=== PATIENT | female | born 2000 | race Caucasian/White ===

== ENCOUNTER 2022-10-30 10:52 | Emergency (ER) | payer OTHER ==
[2022-10-30 11:10] VITALS: TEMP 98.1
[2022-10-30] MEDS ORDERED: DUONEB 0.5-3 MG/3 ml Neb IH ONE ×2 (11:21→11:29)
--- NOTE | 2022-10-30 11:21 | ERPHSYRPT ---
- History of Present Illness Time Seen by Provider: 10/30/22 11:16 Source: patient Exam Limitations: no limitations Patient Subjective Stated Complaint: C/O SOB for the past 3 days that is worse today and becomes very bad when active a work. Triage Nursing Assessment: Patient ambulated back to ER without difficulties. She is alert and oriented but tearful. No SOB. No cough. Skin tone normal. Lungs clear. Physician History: Patient is a 22-year-old female presents to our ED with shortness of breath that has been ongoing for 3 days. 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 Patient states her shortness of breath worsens with activity. No shortness of breath at rest. Patient asymptomatic at this time. No chest pain. No nausea vomiting or diaphoresis. Patient is a former smoker. Patient that she is quit within the past week. No fever no cough no wheezing. Patient voices no other complaints or concerns at this time. Portions of this note were created with voice recognition technology. There may be grammatical, spelling, punctuation or sound alike errors Timing/Duration: today Activities at Onset: none Severity of Dyspnea-Max: moderate Severity of Dyspnea-Current: mild Possible Cause: no prior episodes Modifying Factors: Improves With: activity Associated Symptoms: denies symptoms Allergies/Adverse Reactions: No Known Drug Allergies Allergy (Verified 10/30/22 10:54) Hx Tetanus, Diphtheria Vaccination/Date Given: Yes Hx Influenza Vaccination/Date Given: No Hx Pneumococcal Vaccination/Date Given: No Immunizations Up to Date: Yes Travel Risk - International Travel Have you traveled outside of the country in past 3 weeks: No - Coronavirus Screening Are you exhibiting any of the following symptoms?: Yes Symptoms: Shortness of Breath Close contact with a COVID-19 positive Pt in past 14-21 Days: No - Vaccine Status Have you recieved a Covid-19 vaccination: Yes Medical Technologist Prn: Unknown - Vaccination Dates Dates if Unknown: ? - Review of Systems Constitutional: No Symptoms, No Fever, No Chills Eyes: No Symptoms Ears, Nose, & Throat: No Symptoms Respiratory: No Symptoms, No Cough, No Dyspnea Cardiac: No Symptoms, No Chest Pain, No Edema, No Syncope Abdominal/Gastrointestinal: No Symptoms, No Abdominal Pain, No Nausea, No Vomiting, No Diarrhea Genitourinary Symptoms: No Symptoms, No Dysuria Musculoskeletal: No Symptoms, No Back Pain, No Neck Pain Skin: No Symptoms, No Rash Neurological: No Symptoms, No Dizziness, No Focal Weakness, No Sensory Changes Psychological: No Symptoms Endocrine: No Symptoms Hematologic/Lymphatic: No Symptoms Immunological/Allergic: No Symptoms All Other Systems: Reviewed and Negative - Past Medical History Pertinent Past Medical History: Yes Psycho-Social History: Anxiety 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 - Past Surgical History Past Surgical History: No - Social History Smoking Status: Former smoker Exposure to second hand smoke: No Drug Use: none - Female History Hx Last Menstrual Period: 1 MONTH AGO Hx Now: No - Nursing Vital Signs Nursing Vital Signs: Initial Vital Signs Temperature 98.1 F 10/30/22 10:55 Pulse Rate 89 10/30/22 10:55 Respiratory Rate 19 10/30/22 10:55 Blood Pressure 153/97 10/30/22 10:55 O2 Sat by Pulse Oximetry 100 10/30/22 10:55 Pain Scale Pain Intensity 0 - Physical Exam General Appearance: no apparent distress, alert Eye Exam: PERRL/EOMI Ears, Nose, Throat Exam: hearing grossly normal, normal ENT inspection, sinus pain/drainage Neck Exam: normal inspection, supple Respiratory Exam: normal breath sounds, lungs clear, airway intact, No respiratory distress Cardiovascular/Chest Exam: normal heart sounds, regular rate/rhythm Abdominal/Gastrointestinal Exam: soft, normal bowel sounds, No tenderness, No distention, No mass Extremity Exam: non-tender, normal range of motion, normal inspection, no calf tenderness, no pedal edema Neurologic Exam: alert, oriented x 3, cooperative, brand engineer II-XII nml as tested, sensation nml, No motor deficits Skin Exam: normal color, warm, No dry Lymphatic Exam: No adenopathy SpO2 Interpretation: normal SpO2: 100 O2 Delivery: Room Air - Course Nursing assessment & vital signs reviewed: Yes EKG Interpreted by Me: RATE (72), Sinus Rhythm, NORMAL AXIS, NORMAL INTERVALS - Radiology Exams Chest X-ray Interpretation: Teleradiologist Report (Negative chest x-ray) Ordered Tests: Active Orders 24 hr Category Date Time Status Material Stress Tester STAT Care 10/30/22 11:14 Active EKG-ER Only STAT Care 10/30/22 11:14 Active IV Insertion STAT Care 10/30/22 11:14 Active Pulse Oximetry (ED) STAT Care 10/30/22 11:14 Active CHEST 1 VIEW (PORTABLE) Stat Exams 10/30/22 11:15 Completed CBC W DIFF Stat Lab 10/30/22 11:28 Completed CMP Stat Lab 10/30/22 11:28 Completed D-DIMER QUANTITATIVE Stat Lab 10/30/22 11:28 Completed HCG QUALITATIVE, URINE Stat Lab 10/30/22 Ordered NT PRO BNPII Stat Lab 10/30/22 11:28 Completed TROPONIN Q4H Lab 10/30/22 11:28 Completed TROPONIN Q4H Lab 10/30/22 15:15 Ordered TROPONIN Q4H Lab 10/30/22 19:15 Ordered Medication Summary Discontinued Medications Generic Name Dose Route Start Last Admin Trade Name Freq PRN Reason Stop Dose Admin Albuterol/Ipratropium 3 ml 10/30/22 11:21 10/30/22 11:32 Ipratropium/Albuterol Sulfate 3 Ml Ampul.Neb IH 10/30/22 11:22 3 ml STAT ONE Administration Albuterol/Ipratropium Confirm 10/30/22 11:29 Ipratropium/Albuterol Sulfate 3 Ml Ampul.Neb Administered 10/30/22 11:30 Dose 3 ml IH .STK-MED ONE Prednisone 60 mg 10/30/22 12:24 10/30/22 12:25 Prednisone 20 Mg Tablet PO 10/30/22 12:25 60 mg STAT ONE Administration Prednisone Confirm 10/30/22 12:24 Prednisone 20 Mg Tablet Administered 10/30/22 12:25 Dose 60 mg .ROUTE .STK-MED ONE Lab/Rad Data: Laboratory Result Diagrams 10/30/22 11:28 10/30/22 11:28 Laboratory Results 10/30/22 10/30/22 10/30/22 Range/Units 11:28 11:28 11:28 WBC (4.0-10.5) x10^3/uL RBC (4.1-5.4) x10^6/uL Hgb (12.0-16.0) g/dL Hct (35-47) % MCV (78-100) fL MCH (26-32) pg MCHC (32-36) g/dL RDW (11.5-14.0) % Plt Count (150-450) x10^3/uL MPV (7.5-11.0) fL Gran % (36.0-66.0) % Immature Gran % (Auto) (0.00-0.4) % Nucleat RBC Rel Count (0.00-0.1) % Eos # (Auto) (0-0.5) x10^3/uL Immature Gran # (Auto) (0.00-0.03) x10^3u/L Absolute Lymphs (auto) (1.0-4.6) x10^3/uL Absolute Monos (auto) (0.0-1.3) x10^3/uL Absolute Nucleated RBC (0.00-0.01) x10^3u/L Lymphocytes % (24.0-44.0) % Monocytes % (0.0-12.0) % Eosinophils % (0.00-5.0) % Basophils % (0.0-0.4) % Absolute Granulocytes (1.4-6.9) x10^3/uL Basophils # (0-0.4) x10^3/uL D-Dimer 0.43 (0.0-0.50) mg/L Sodium 139 (137-145) mmol/L Potassium 4.0 (3.5-5.1) mmol/L Chloride 106 (98-107) mmol/L Carbon Dioxide 24 (22-30) mmol/L Anion Gap 13.5 (5-15) MEQ/L BUN 11 (7-17) mg/dL Creatinine 0.60 (0.52-1.04) mg/dL Estimated GFR > 60.0 ML/MIN Glucose 101 (74-106) mg/dL Calcium 9.0 (8.4-10.2) mg/dL Total Bilirubin 0.40 (0.2-1.3) mg/dL AST 23 (14-36) U/L ALT 28 (0-35) U/L Alkaline Phosphatase 93 (38-126) U/L Troponin I < 0.012 (0.000-0.034) ng/mL NT-Pro-B Natriuret Pep 60.5 (<300) pg/mL Serum Total Protein 7.7 (6.3-8.2) g/dL Albumin 4.4 (3.5-5.0) g/dL 10/30/22 Range/Units 11:28 WBC 8.5 (4.0-10.5) x10^3/uL RBC 4.98 (4.1-5.4) x10^6/uL Hgb 12.9 (12.0-16.0) g/dL Hct 41.1 (35-47) % MCV 82.5 (78-100) fL MCH 25.9 L (26-32) pg MCHC 31.4 L (32-36) g/dL RDW 14.1 H (11.5-14.0) % Plt Count 295 (150-450) x10^3/uL MPV 10.4 (7.5-11.0) fL Gran % 52.4 (36.0-66.0) % Immature Gran % (Auto) 0.4 (0.00-0.4) % Nucleat RBC Rel Count 0.0 (0.00-0.1) % Eos # (Auto) 0.13 (0-0.5) x10^3/uL Immature Gran # (Auto) 0.03 (0.00-0.03) x10^3u/L Absolute Lymphs (auto) 3.24 (1.0-4.6) x10^3/uL Absolute Monos (auto) 0.62 (0.0-1.3) x10^3/uL Absolute Nucleated RBC 0.00 (0.00-0.01) x10^3u/L Lymphocytes % 37.9 (24.0-44.0) % Monocytes % 7.3 (0.0-12.0) % Eosinophils % 1.5 (0.00-5.0) % Basophils % 0.5 (0.0-0.4) % Absolute Granulocytes 4.48 (1.4-6.9) x10^3/uL Basophils # 0.04 (0-0.4) x10^3/uL D-Dimer (0.0-0.50) mg/L Sodium (137-145) mmol/L Potassium (3.5-5.1) mmol/L Chloride (98-107) mmol/L Carbon Dioxide (22-30) mmol/L Anion Gap (5-15) MEQ/L BUN (7-17) mg/dL Creatinine (0.52-1.04) mg/dL Estimated GFR ML/MIN Glucose (74-106) mg/dL Calcium (8.4-10.2) mg/dL Total Bilirubin (0.2-1.3) mg/dL AST (14-36) U/L ALT (0-35) U/L Alkaline Phosphatase (38-126) U/L Troponin I (0.000-0.034) ng/mL NT-Pro-B Natriuret Pep (<300) pg/mL Serum Total Protein (6.3-8.2) g/dL Albumin (3.5-5.0) g/dL - Progress Progress: improved Air Movement: good Progress Note: Patient 22-year-old female presents to our ED for evaluation of shortness of breath with exertion. Patient was asymptomatic at rest. We ambulated patient throughout our ED. Patient maintained oxygen saturation of 98% while walking. She had no signs of labored breathing. No chest pain. EKG normal sinus rhythm rate of 72. Chest x-ray negative no acute findings. CBC CMP negative. COVID test negative. D-dimer negative. Troponin negative. BNP within normal limits. Patient received a dose of albuterol and prednisone. Symptoms improved. Patient will be discharged home with a prescription for albuterol rescue inhaler and 3 days of prednisone. Patient agrees to follow-up with her primary care doctor within 48 hours for reevaluation. She voices no other complaints or concerns at this time. Portions of this note were created with voice recognition technology. There may be grammatical, spelling, punctuation or sound alike errors Complexity problem addressed is moderate. No critical care time Complexity data reviewed and analyzed is moderate. Test ordered. Test reviewed and analyzed by Dr. Cheema. Clinical correlation made between findings. We ambulated patient in our ED to assess functional oxygenation. O2 sat 98% with ambulation. This is normal. No respiratory distress. Risk complication and or risk morbidity/mortality patient management is high. Patient received nebulized/albuterol, DuoNeb for treatment of shortness of breath. A prescription for rescue inhaler and prednisone forwarded to patient's pharmacy. Vital stable. Time spent in discharge patient is approximately 15 minutes. Plan of care established for shared decision making. No social determinants of health present simply follow-up. Patient states she ready for discharge. Portions of this note were created with voice recognition technology. There may be grammatical, spelling, punctuation or sound alike errors 10/30/22 12:40 Blood Culture(s) Obtained: No Antibiotics given: No Counseled pt/family regarding: lab results, diagnosis, need for follow-up, rad results - Departure Departure Disposition: Home Clinical Impression: Shortness of breath Condition: Stable Critical Care Time: No Referrals: DOCTOR,NO FAMILY [Primary Care Provider] - Follow up/PCP as directed ENRRIQUE HUERTA MD [ACTIVE STAFF] - Follow up/PCP as directed Instructions: Shortness of Breath, Adult ED Additional Instructions: Discharge/Care Plan DUSTIN PEDROZA was seen on 10/30/22 in the Emergency Room. The patient was counseled regarding Diagnosis,Lab results, Imaging studies, need for follow up and when to return to the Emergency Room. Prescriptions given: Discharge Note I have spoken with the patient and/or caregivers. I have explained the patient's condition, diagnosis and treatment plan based on the information available to me at this time. I have answered the patient's and/or caregiver's questions and addressed any concerns. The patient and/or caregivers have as good understanding of the patient's diagnosis, condition and treatment plan as can be expected at this point. The vital signs have been stable. The patient's condition is stable and appropriate for discharge from the emergency department. The patient will pursue further outpatient evaluation with the primary care physician or other designated or consulting physician as outlined in the discharge instructions. The patient and/or caregivers are agreeable to this plan of care and follow-up instructions have been explained in detail. The patient and/or caregivers have received these instruction. The patient/and or caregivers are aware that any significant change in condition or worsening of symptoms should prompt an immediate return to this or the closest emergency department or call 911. Prescriptions: Prednisone 10 mg [Deltasone 10 mg] 40 mg PO DAILY 3 Days #12 tablet Albuterol 8 gm Mdi Hfa [Ventolin Hfa MDI] 8 gm IH Q4H #1
[2022-10-30 11:33] LABS: Absolute Neutrophil Ct (ANC) 4.48 x10^3/uL (1.4-6.9); BASOPHIL % 0.5 % (0.0-0.4); Basophil (Absolute #) 0.04 x10^3/uL (0-0.4); Eosinophil % 1.5 % (0.00-5.0); Eosinophil (Absolute #) 0.13 x10^3/uL (0-0.5); Hematocrit 41.1 % (35-47); Hemoglobin 12.9 g/dL (12.0-16.0); IMMATURE GRAN # 0.03 x10^3u/L (0.00-0.03); IMMATURE GRAN % 0.4 % (0.00-0.4); Lymphocyte (Absolute #) 3.24 x10^3/uL (1.0-4.6); Lymphocytes % 37.9 % (24.0-44.0); Mean Cell Volume 82.5 fL (78-100); Mean Corpuscular Hemoglobin 25.9 pg (26-32); Mean Corpuscular Hgb Concent. 31.4 g/dL (32-36); Mean Platelet Volume 10.4 fL (7.5-11.0); Monocyte (Absolute #) 0.62 x10^3/uL (0.0-1.3); Monocytes % 7.3 % (0.0-12.0); Neutrophil % 52.4 % (36.0-66.0); Platelet Count 295 x10^3/uL (150-450); Red Blood Count 4.98 x10^6/uL (4.1-5.4); Red Cell Distribution Width 14.1 % (11.5-14.0); White Blood Count 8.5 x10^3/uL (4.0-10.5)
--- NOTE | 2022-10-30 11:50 | XRAY ---
CLINICAL HISTORY:sob COMPARISON:None. TECHNIQUE:X-ray of the chest, AP portable 1 view. FINDINGS: A radiographic examination of the chest demonstrates clear lungs. Normal configuration of the mediastinum. The jasvir are normal in size and position. The cardiac size is normal. Costophrenic and cardiophrenic angles are clear. Bony thorax is unremarkable. IMPRESSION: No active pulmonary pathology detected. Electronically Signed by: Peng Matias MD. (10/30/2022 10:50:05 SILVER [facility]ASER)
[2022-10-30 11:55] LABS: ALBUMIN 4.4 g/dL (3.5-5.0); ALKALINE PHOSPHATASE 93 U/L (38-126); ANION GAP 13.5 MEQ/L (5-15); BLOOD UREA NITROGEN 11 mg/dL (7-17); CHLORIDE 106 mmol/L (98-107); Carbon Dioxide 24 mmol/L (22-30); EST GLOMERULAR FILTRATION RATE > 60.0 ML/MIN; Glucose 101 mg/dL (74-106); NT PRO BNPII 60.5 pg/mL (<300); SGOT/AST 23 U/L (14-36); SGPT/ALT 28 U/L (0-35); SODIUM 139 mmol/L (137-145); Total Protein 7.7 g/dL (6.3-8.2)
[2022-10-30] MEDS ORDERED: DELTASONE 20 MG PO ONE (12:24)
[2022-10-30] MEDS ORDERED: DELTASONE 20 MG ONE (12:24)
[2022-10-30 12:39] VITALS: O2SAT 100
[2022-10-30 12:54] LABS: INFLUENZA A NEGATIVE (NEGATIVE); INFLUENZA B NEGATIVE (NEGATIVE); RESPIRATORY SYNCTIAL VIRUS NEGATIVE (NEGATIVE); SARS-CoV-2 Xpert Express NEGATIVE (NEGATIVE)
[2022-10-30 13:03] VITALS: BP 119/79; PULSE 70; RESP 18
== END 2022-10-30 13:06 | disposition home or self-care (01) ==
LOC: ED 10:52
DX: R06.02 Shortness of breath (principal); Z79.52 Long term (current) use of systemic steroids
CPT/HCPCS: 0241U; 36415; 71045; 80053; 83880; 84484; 85025; 85379; 93005; 93041; 94640; 94760; 99284; A9270-GY